=== PATIENT | female | born 1965 | race Caucasian/White ===

== ENCOUNTER 2018-03-07 10:55 | Emergency (ER) | payer OTHER ==
[~2018-03-07] VITALS: Ht 154.9 cm; Wt 81.7 kg
[2018-03-07] MEDS ORDERED: ZESTRIL10 MG PO (11:04)
[2018-03-07] MEDS ORDERED: VITAMINC500 PO (11:05)
[2018-03-07] MEDS ORDERED: FISH OIL 1,001000 M2 PO (11:05)
[2018-03-07] MEDS ORDERED: VITAMIN B-12500 MCG PO (11:05)
[2018-03-07] MEDS ORDERED: KEFLEX500 M1 PO (11:22)
[2018-03-07 11:42] VITALS: BP 162/85
== END 2018-03-07 11:43 | disposition home or self-care (01) ==
LOC: M.ERS 10:55
DX: S61.214A Laceration without foreign body of right ring finger without damage to nail, initial encounter (principal); I10 Essential (primary) hypertension; E78.00 Pure hypercholesterolemia, unspecified; Z88.8 Allergy status to other drugs, medicaments and biological substances; W26.8XXA Contact with other sharp object(s), not elsewhere classified, initial encounter; Y93.89 Activity, other specified; Y92.89 Other specified places as the place of occurrence of the external cause; Y99.8 Other external cause status